=== PATIENT | male | born 1975 | race African-American/Black ===

== ENCOUNTER 2025-07-22 10:51 | Outpatient (REF) | payer MEDICAID, SELFPAY ==
--- OUTSIDE RECORDS SUMMARY | 2025-07-22 09:45 | XMS_ITS | Encounter Summary ---
Author Organization [employer] Address [address] [facility] [address] [place] [address] Care Team Providers Care Abrasive Sawyer Name Role Phone Sharona Kaur MD Primary Care Provider [phone] Reason for Referral * Consultation (Routine) - Pending Review Specialty Diagnoses / Procedures Referred By Ariel hummel Referred To Contact Podiatry Diagnoses Bunion, right foot Bunion, left Sharona Kaur MD [address] [place], [place] Phone: tel: fax: Referral ID Status Reason Start Date Expiration Date Visits Requested Visits Authorized [id number] Pending Review Specialty Services Required 07/22/2026 1 1 * Consultation (Routine) - Closed Specialty Diagnoses / Procedures Referred By Ariel hummel Referred To Contact Optometry Diagnoses Blurry vision Sharona Kaur MD [address] [place] [address] Phone: tel: fax: Referral ID Status Reason Start Date Expiration Date V isits Requested Visits Authorized [id number] Closed Specialty Services Required 07/22/2025 07/22/2026 1 1 Reason for Visit * Reason Comments new pt Encounter Details Date Type Department Care Team (Late st Contact Info) Description 07/22/2025 9:45 AM EDT Office Visit [facility] [address] [place] [address] [place] [address] Sharona Kaur MD [address] [place] [address] Blurry vision (Primary Dx); Bunion, right foot; Bunion, left; Encounter to establish care with new doctor Social History Tobacco Use Types Packs/Day Years Used Date Smoking Tobacco: Former Cigarettes Passive Smoke Exposure: Never Smokeless Tobacco: Former Alcohol Use Standard Drinks/Week Comments Defer 0 (1 standard drink = 0.6 oz pur e alcohol) Depression Answer Date Recorded Patient Health Questionnaire-9 Score 20 07/22/2025 Patient Health Questionnaire-9 Score 20 07/22/2025 Last PHQ-9: Questionnaire Data Not on file 1 Depression Answer Date Recorded Patient Health Questionnaire-2 Score 5 07/22/2025 Sex and Gender Information Value Date Recorded Sex Assigned at Male 12/25/2024 9:05 AM EDT Legal Sex Male 9:04 AM EDT Gender Identity Male 12/25/2024 9:05 AM EDT Sexual Orientation Straight 12/25/2024 9: 05 AM EDT documented as of this encounter Last Filed Vital Signs Vital Sign Reading Time Taken Comments Blood Pressure 128/70 07/22/2025 9:46 AM EDT Pulse 72 07/22/2025 9:46 AM EDT Temperature 36.6 C (97.8 F) 07/22/2025 9:46 AM EDT Respiratory Rate 20 07/22/2025 9:46 AM EDT Oxygen Saturation - - Inhaled Oxygen Concentration - - Weight 77.4 kg (170 lb 9.6 oz) 07/22/2025 9:46 A M EDT Height 185.4 cm (6' 1 ) 07/22/2025 9:46 AM EDT Body Mass Index 22.51 07/22/2025 9:46 AM EDT documented in this encounter Functional Status * Over the past 2 weeks, how often have you been bothered by any of the following problems? Question Answer Date of Assessment Author Patient Health Questionnaire -2 Score 5 07/22/2025 10:13 AM EDT Vince Barkley MA * Little interest or pleasure in doing things Answer Date of Assessment Author More than half the days 07/22/2025 10:13 AM Vince Tyson MA * Feeling down, depressed, or hopeless Answer Date of Assessment Author Nearly every day 07/22/2025 10:13 AM Vince Tyson MA * Trouble falling or staying asleep, or sleeping too much Answer Date of Assessment Author Nearly every day 07/22/2025 10:13 AM Vince Tyson MA * Feeling tired or having little energy Answer Date of Assessment Author Nearly every day 07/22/2025 10:13 AM Vince Tyson MA * Poor appetite or overeating Answer Date of Assessment Author Several days 07/22/2025 10:13 AM Vince Tyson MA * Feeling bad about yourself - or that you are a failure or have let yourself or your family down Answer Date of Assessment Author More than half the days 07/22/2025 10:13 AM Vince Tyson MA * Trouble concentrating on things, such as reading the newspaper or watching television Answer Date of Assessment Author Nearly every day 07/22/2025 10:13 AM Vince Tyson MA * Moving or speaking so slowly that other people could have noticed? Or the opposite - being so fidgety or restless that you have been moving around a lot more than usual. Answer Date of Assessment Author Nearly every day 07/22/2025 10:13 AM Vince Tyson MA * Thoughts that you would be better off or hurting yourself in some way Answer Date of Assessment Author Not at all 07/22/2025 10:13 AM Vince Tyson MA * Patient Health Questionnaire-9 Score Answer Date of Assessment Author 20 07/22/2025 10:13 AM Vince Tyson MA * How difficult have these problems made it for you to do your work, take care of things at home, or get along with other people? Answer Date of Assessment Author Very difficult 07/22/2025 10:13 AM Vince Tyson MA * Over the last 2 weeks, how often have you been bothered by any of the following problems? Question Answer Date of Assessment Author Feeling nervous, anxious, or on edge 3 07/22/2025 10:11 AM EDT Vince Barkley MA Not being able to stop or co ntrol worrying 3 07/22/2025 10:11 AM EDT Vince Barkley MA Worrying too much about diff erent things 3 07/22/2025 10:11 AM EDT Vince Barkley MA Trouble relaxing 3 07/22/2025 10:11 AM EDT Vince Barkley MA Being so restless that it is hard to sit still 3 07/22/2025 10:11 AM EDT Vince Barkley MA Becoming easily annoyed or irritable 3 07/22/2025 10:11 AM EDT Vince Barkley MA Feeling afraid as if somethi ng awful might happen 3 07/22/2025 10:11 AM EDT Vince Barkley MA FRANK-7 Total Score 21 07/22/2025 10:11 AM EDT Vince Barkley MA documented as of this encounter Plan of Treatment Scheduled Orders Name Type Priority Associated Diagnoses Orde r Schedule Hemoglobin A1c Lab Routine Encounter to establish care with new doctor Expected: 07/22/2025 (Approximate), Expires: 07/22/2026 Lipid Panel, Standard Lab Routine Encounter to establish care with new doctor Expected: 07/22/2025 (Approximate), Expires: 07/22/2026 Comprehensive Metabolic Panel Lab Routine Encounter to establish care with new doctor Expected: 07/22/2025 (Approximate), Expires: 07/22/2026 PSA,Total Lab Routine Encounter to establish care with new doctor Expected: 07/22/2025, Expires: 07/22/2026 Hepatitis C Antibody with Reflex to HCV, RNA, Quantitative, Real-Time PCR Lab Routine Encounter to establish care with new doctor Expected: 07/22/2025, Expires: 07/22/2026 HIV-1/2 Antigen and Antibodies, Fourth Generation, with Reflexes Lab Routine Encounter to establish care with new doctor Expected: 07/22/2025 (Approximate), Expires: 07/22/2026 Scheduled Referrals Name Type Priority Associated Diagnoses Orde r Schedule Referral to Optometry Outpatient Referral Routine Blurry vision Expected: 07/22/2025 (Approximate), Expires: 07/22/2026 Referral to Podiatry Outpatient Referral Routine Bunion, right foot Bunion, left Expected: 07/22/2025 (Approximate), Expires: 07/22/2026 documented as of this encounter Visit Diagnoses Diagnosis Blurry vision- Primary Other specified visual disturbances Bunion, right foot Bunion Bunion, left Encounter to establish care with new doctor documented in this encounter Additional Health Concerns Assessment Noted Time PHQ-9 Depression Total Score: 20 025 10:13 AM EDT documented as of this encounter Care Teams Abrasive Sawyer Relationship Specialty Start Date End Date Sharona Kaur MD [address] [place] [address] PCP - General Family Medicine 07/22/25 documented as of this encounter
--- OUTSIDE RECORDS SUMMARY | 2025-07-22 13:18 | XMS_ITS | Clinical Summary ---
Author Organization [employer] Address [address] [facility] [address] [place] [address] Care Team Providers Care Finance Admin Name Role Phone Sharona Kaur MD Primary Care Provider [phone] Allergies Active Allergy Reactions Criticality Noted Date Comments Penicillins Hives 07/22/2025 Medications * This document contains information received from the source organization and may not represent a complete record from that organization. ibuprofen 800 MG tablet Take 800 mg by mouth if needed in the morning, at noon, and at bedtime. 05/30/2024 Active nicotine (Nicoderm CQ) 14 MG/24HR patch Place 1 patch on the skin 1 (one) time each day at the same time. 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 Date Type Department Care Team Description 07/22/2025 9:45 AM EDT Office Visit [facility] [address] [place] [address] Sharona Kaur MD Blurry vision (Primary Dx); Bunion, right foot; Bunion, left; Encounter to establish care with new doctor 07/22/2025 Travel 07/21/2025 Telephone [facility] [address] [place] [address] Sharona Kaur MD Chart Prep 07/15/2025 Patient Outreach [facility] [address] [place] [address] Sharona Kaur MD Pre-visit Planning (SDOH unable to reach [facility] ) 06/09/2025 8:00 AM EDT Office Visit [facility] [address] [place] [address] Bernard Mcdaniel DDS Dental caries (Primary Dx) 04/22/2025 9:00 AM EDT Office Visit [facility] [address] [place] [address] Bernard Mcdaniel DDS Edentulous maxilla (Primary Dx); Partial edentulism, unspecified edentulism class from Last 3 Months Immunizations Immunization Administration Dates Next Due Zoster, Recombinant 01/21/2025 Social History Tobacco Use Types Packs/Day Years Used Date Smoking Tobacco: Former Cigarettes Passive Smoke Exposure: Never Smokeless Tobacco: Former Tobacco Cessation:Counseling Given: No Alcohol Use Standard Drinks/Week Comments Defer 0 [...] Orientation Straight 12/25/2024 9: 05 AM EDT Last Filed Vital Signs Vital Sign Reading Time Taken Comments Blood Pressure 128/70 07/22/2025 9:46 AM EDT Pulse 72 07/22/2025 9:46 AM EDT Temperature 36.6 C (97.8 F) 07/22/2025 9:46 AM EDT Respiratory Rate 20 07/22/2025 9:46 AM EDT Oxygen Saturation 99% 03/08/2025 10:49 AM EDT Inhaled Oxygen Concentration - - Weight 77.4 kg (170 lb 9.6 oz) 07/22/2025 9:46 A M EDT Height 185.4 cm (6' 1 ) 07/22/2025 9:46 AM EDT Body Mass Index 22.51 07/22/2025 9:46 AM EDT Plan of Treatment Health Maintenance Due Date Last Done Comments CT Colonography 1974 Colonoscopy 1974 Colorectal Cancer Screening 1974 FIT DNA/Cologuard 1974 FIT 1974 FOBT 1974 HIV Screening 1974 Lipid Panel 1974 SDOH Screening 1974 Sigmoidoscopy 1974 Disability Screening 1974 Family Planning (PISQ) 1989 Hepatitis C Screening 1992 DTaP/Tdap/Td Vaccines (1 - Tdap) 1993 Hepatitis B Vaccines (1 of 3 - 19+ 3-dose series) 1993 Pneumococcal Vaccine: 50+ Years (1 of 1 - PCV) 2024 Zoster Vaccines (2 of 2) 03/18/2025 01/21/2025 COVID-19 Vaccine ( - 2023-2 5 season) 2025 Influenza Vaccine (#1) 2025 Dental Oral Exam 07/09/2025 01/06/2025 Dental Prophylaxis 07/09/2025 01/06/2025 Dental X-Ray: Bitewings 01/07/2026 01/06/2025 Depression Monitoring 01/20/2026 07/22/2025 , 07/22/2025 Tobacco Screening 06/09/2026 06/09/2025 Alcohol/Substance Use Screening 07/22/2026 07/22/2025 Dental X-Ray: Full Mouth 01/08/2028 01/06/2025 RSV Patients and Patients Aged 60 years or older (1 - 1-dose 75+ series) 2049 HIB Vaccines Aged Out No longer eligi ble based on patient's age to complete this topic HPV Vaccines Aged Out No longer eligi ble based on patient's age to complete this topic Hepatitis A Vaccines Aged Out No long er eligible based on patient's age to complete this topic IPV Vaccines Aged Out No longer eligi ble based on patient's age to complete this topic Meningococcal B Vaccine Aged Out No l onger eligible based on patient's age to complete this topic Meningococcal Vaccine Aged Out No alena daphne eligible based on patient's age to complete this topic RSV under 20 months Aged Out No longe r eligible based on patient's age to complete this topic Rotavirus Vaccines Aged Out No longer eligible based on patient's age to complete this topic Procedures Procedure Name Priority Date/Time Associated Diagnosis Comments ADJUST PARTIAL DENTURE - MANDIBULAR Routine 06/09/2025 8:00 AM EDT CASE PRESENTATION, DETAILED AND EXTENSIVE TREATMENT PLANNING Routine 06/09/2025 8:00 AM EDT 27 MDF(V) RESIN-BASED COMPOSITE - 3 SURF, ANTERIOR Routine 06/09/2025 8:00 AM EDT 21 B(V) RESIN-BASED COMPOSITE - 1 SURF, POSTERIOR Routine 06/09/2025 8:00 AM EDT CASE PRESENTATION, DETAILED AND EXTENSIVE TREATMENT PLANNING Routine 04/22/2025 9:00 AM EDT 17,18,19,20,28,29,30,31 MANDIBULAR PARTIAL DENTURE - RESIN BASE (INCLUDING, RETENTIVE/CLASPING MATERIALS, RESTS, AND TEETH) Routine 04/22/2025 9:00 AM EDT Max COMPLETE DENTURE - MAXILLARY Routine 04/22/2025 9:00 AM EDT PROPHYLAXIS - ADULT Routine 01/06/2025 1 1:00 AM EDT Dental calculus Gingival bleeding INTRAORAL - COMPLETE SERIES OF RADIOGRAPHIC IMAGES Routine 01/06/2025 8:00 AM EDT COMPREHENSIVE ORAL EVALUATION - NEW OR ESTABLISHED PATIENT Routine 01/06/2025 8:00 AM EDT from Last 3 Months or Most Recently Relevant to Health Maintenance Insurance [facility] ADULT Care Teams Finance Admin Relationship Specialty Start Date End Date Sharona Kaur MD [address] [place] [id number] PCP - General Family Medicine 07/22/25
--- OUTSIDE RECORDS SUMMARY | 2025-07-22 13:18 | XMS_ITS | Encounter Summary ---
Author Organization [employer] Address [address] [facility] [address] [place] [address] Care Team Providers Care Conductor Freight Name Role Phone Sharona Kaur MD Primary Care Provider [phone] Encounter Details Date Type Department Care Team (Latest Contact Info) Description 07/22/2025 Travel Social History Tobacco Use Types Packs/Day Years [...] AM EDT documented as of this encounter Functional Status * Over the past 2 weeks, how often have you been bothered by any of the following problems? Question Answer Date of Assessment Author Patient Health Questionnaire -2 Score 5 07/22/2025 10:13 AM EDT Vince Barkley MA * Little interest or pleasure in doing things Answer Date of Assessment Author More than half the days 07/22/2025 10:13 AM EDT Vince Barkley MA * Feeling down, depressed, or hopeless [...] or on edge 3 07/22/2025 10:11 AM Vince Tyson MA Not being able to stop or [...] as of this encounter Plan of Treatment Not on file documented as of this encounter Visit Diagnoses Not on filedocumented in this encounter Additional Health Concerns Assessment Noted Time PHQ-9 Depression Total Score: 20 025 10:13 AM EDT documented as of this encounter Care Teams Conductor Freight Relationship Specialty Start Date End Date Sharona Kaur MD [address] [place] [address] PCP - General Family Medicine 07/22/25 documented as of this encounter
--- OUTSIDE RECORDS SUMMARY | 2025-07-22 13:19 | XMS_ITS | Encounter Summary ---
Author Organization [employer] Address [address] [facility] [address] [place] [address] Care Team Providers Care Jointer Submarine Cable Name Role Phone Unavailable Primary Care Provider Unavailabl e Reason for Visit * Reason Onset Date Comments Chart Prep 07/21/2025 Encounter Details Date Type Department Care Team ([facility] st Contact Info) Description 07/21/2025 Telephone [facility] [address] [place] [address] Sharona Kaur MD [address] [place] [address] Chart Prep Social History Tobacco Use Types Packs/Day Years [...] AM EDT documented as of this encounter Miscellaneous Notes * Telephone Encounter - Irasema Woodard MA - 07/21/2025 2:15 PM EDT Chart Prep Labs: not applicable Images: not applicable Referrals: not applicable Vaccines due: Covid, Flu, PCV20, Tdap, Hep B, and Zoster Screenings: colonoscopy and PISQ, HIV Screening, Hepatitis C Screening Overdue care gaps: SBIRT, SDOH, PHQ-9, FRANK-7, Oral health screening, and Disability screen documented in this encounter Plan of Treatment Not on file documented as of this encounter Visit Diagnoses Not on filedocumented in this encounter
[2025-07-22 14:41] LABS: Prostate Specific Antigen 1.03 ng/mL (<0.05-4.0)
[2025-07-22 14:45] LABS: Hemoglobin A1C 131.5300 umol/L
[2025-07-22 18:15] LABS: Alanine Aminotransferase 27 U/L (0-40); Albumin Level 4.5 g/dL (3.5-5.0); Alkaline Phosphatase 70 U/L (39-117); Anion Gap 8 (12-20); Aspartate Amino Transferase 35 U/L (5-37); Blood Urea Nitrogen 13 mg/dL (9-16); Calcium 9.2 mg/dL (8.4-10.2); Carbon Dioxide 26 mmol/L (22-29); Chloride 109 mmol/L (96-108); Cholesterol 171 mg/dL (<200); Estimated Glomerular Filt Rate > 60; HDL Cholesterol 47 mg/dL (>40); Potassium 4.2 mmol/L (3.3-5.1); Sodium 139 mmol/L (135-145); Total Protein 7.8 g/dL (6.5-8.0); Triglycerides 65 mg/dL (<150)
[2025-07-23 03:32] LABS: HIV Num 1 0.06 S/CO (0.00-0.99); ~HepC Num1 0.09 S/CO (0.00-0.79); ~Hepatitis C Antibody Nonreactive (Nonreactive)
== END 2025-07-22 10:52 | disposition home or self-care (01) ==
LOC: HO.HHCL 10:51
PROVIDERS: PCP General Practice; Visit Provider General Practice
DX: Z76.89 Persons encountering health services in other specified circumstances (principal); Z11.59 Encounter for screening for other viral diseases; Z11.4 Encounter for screening for human immunodeficiency virus [HIV]
CPT/HCPCS: 36415; 80053; 80061; 83036; 84153; 86803; 87389

== ENCOUNTER 2025-08-01 09:33 | Outpatient (REF) | payer MEDICAID, SELFPAY ==
--- NOTE | ~2025-08-01 | XR_ITS ---
EXAMINATION: XR HIP 2 OR MORE VIEWS RIGHT HISTORY: right hip groin pain COMPARISON: There are no prior studies available for comparison. FINDINGS: Two views of the right hip are submitted. Osseous mineralization is normal. There is no fracture or dislocation. There is mild joint space narrowing. The soft tissues are unremarkable. XR/XR hip RT min 2V IMPRESSION: Mild joint space narrowing Electronically signed by: Ottoniel Sanchez MD 08/01/2025 10:09 AM EDT
--- OUTSIDE RECORDS SUMMARY | 2025-08-01 09:20 | XMS_ITS | Encounter Summary ---
Author Organization [employer] Address [address] [facility] [address] [place] [address] Care Team Providers Care Fisheries Technical Officer Name Role Phone Sharona Kaur MD Primary Care Provider [phone] Reason for Referral * Imaging (Routine) - Authorized Specialty Diagnoses / Procedures Referred By Contac t Referred To Contact Radiology Diagnoses Right hip pain Procedures US Groin soft tissue Bia Garner NP [address] [place] [address] Phone: tel: fax: [address] Phone: tel: fax: Referral ID Status Reason Start Date Expiration Date V isits Requested Visits Authorized [id number] Authorized 08/01/2025 08/01/2026 1 1 Reason for Visit * Reason Comments Back Pain Encounter Details Date Type Department Care Team (Late st Contact Info) Description 08/01/2025 9:20 AM EDT Office Visit [facility] [address] [place], [place] [id number] Bia Garner NP [address] [place] [address] Right hip pain (Primary Dx) Social History Tobacco Use Types Packs/Day Years Used Date Smoking Tobacco: Former Cigarettes Passive Smoke Exposure: Never Smokeless Tobacco: Former Tobacco Cessation:Counseling Given: Not Answered Alcohol Use Standard Drinks/Week Comments Defer 0 [...] Sign Reading Time Taken Comments Blood Pressure 125/80 08/01/2025 8:53 AM EDT Pulse 90 08/01/2025 8:53 AM EDT Temperature 37.1 C (98.7 F) 08/01/2025 8:53 AM EDT Respiratory Rate 18 08/01/2025 8:53 AM EDT Oxygen Saturation - - Inhaled Oxygen Concentration - - Weight 81.4 kg (179 lb 6.4 oz) 08/01/2025 8:53 A M EDT Height 185.4 cm (6' 1 ) 08/01/2025 8:53 AM EDT Body Mass Index 23.67 08/01/2025 8:53 AM EDT documented in this encounter Progress Notes * Bia Garner NP - 08/01/2025 9:20 AM EDT Pedrito Cooley is a 50 y.o. male who presents to the office for Chief Complaint Patient presents with Back Pain Problem List[1] Medical History[2] Allergies[3] Pedrito Cooley, 50-year-old male - Groin pain described as pinching or shocking sensation in the front thigh, onset close to a year ago, worsened acutely this morning - Pain occurs with walking and standing, sometimes causes leg to give out from the knee and whole leg - Denies feeling any lump or bulge in the groin - Pain recently radiating from the inside of the hip - No history of back injuries except for one incident in the past, evaluated at hospital and told everything was fine - No current use of pain medications - History of foot pain and bunion, treated in November 2024, with ongoing issues and upcoming foot doctor appointment - Reports limping due to foot pain, unable to put much pressure on feet Review of Systems Respiratory: Negative for apnea and chest tightness. Musculoskeletal: Positive for gait problem and myalgias. Negative for joint swelling and neck pain. BP 125/80 (BP Location: Left arm, Patient Position: Sitting, BP Cuff Size: Adult) Pulse 90 Temp98.7 ??F (37.1 ??C) (Temporal) Resp 18 Ht 6' 1 (1.854 m) Wt 179 lb 6.4 oz (81.4 kg) BMI 23.67 kg/m?? Physical Exam Vitals reviewed. Constitutional: Appearance: Normal appearance. HENT: Head: Normocephalic and atraumatic. Nose: Nose normal. Cardiovascular: Rate and Rhythm: Normal rate. Heart sounds: Normal heart sounds. Pulmonary: Breath sounds: Normal breath sounds. Abdominal: Palpations: Abdomen is soft. Musculoskeletal: General: No tenderness. Cervical back: Neck supple. Right hip: No deformity. Normal range of motion. Left hip: No deformity. Normal range of motion. Right lower leg: No edema. Left lower leg: No edema. Right foot: Decreased range of motion. Deformity and bunion present. Left foot: Decreased range of motion. Deformity and bunion present. Neurological: Mental Status: He is alert. Psychiatric: Mood and Affect: Mood normal. - MUSCULOSKELETAL: Examination of the groin and front thigh revealed no hernia or mass. Tenderness in the groin upon palpation. Pain during leg movement and weight-bearing. Nontender upon palpation in other areas of the leg. Assessment & Plan Right hip pain Orders: XR Hip 2 or 3 Views Right; Future US Groin soft tissue; Future acetaminophen (Tylenol Extra Strength) 500 MG tablet; Take 2 tablets (1,000 mg) by mouth every 8 (eight) hours if needed for mild pain for up to 10 days. ibuprofen 800 MG tablet; Take 1 tablet (800 mg) by mouth if needed in the morning, at noon, and at bedtime for moderate pain (with food) for up to 10 days. Assessment & Plan Right hip pain: - Right hip pain may be due to hip arthritis, muscle involvement, or possible indirect inguinal hernia. Differential diagnosis includes hip arthritis and hernia. - Ordered right hip X-ray. Ordered groin soft tissue ultrasound to evaluate for hernia. Prescribed Tylenol and ibuprofen for pain control. Advised to stay off the affected leg, avoid heavy lifting, and walk gently. Scheduled follow-up in one month to reassess symptoms and review test results. Prescription - Acetaminophen, 2 tablets three times daily for pain control (non-addictive) - Ibuprofen, 1 tablet three times daily with food for pain control Appointments - Ultrasound of groin at [facility] next week - Follow-up consultation in one month Current Medications[4] Based on our discussion, I have outlined the following instructions for you: - Take Tylenol and ibuprofen to help with your pain, following the instructions on the package. - Try not to put weight on your sore leg, and if you need to walk, do so slowly and carefully. - Avoid lifting heavy things. Next appointment(s): - Ultrasound of groin at [facility] next week - Follow-up consultation in one month Thank you again for your visit, and we look forward to supporting you in your journey to better health. This note was drafted using Ambient (AI) technology. The patient/patient's guardian has been informed and has consented to the use of this technology: Yes [1] Patient Active Problem List Diagnosis Retained dental root Partial edentulism Edentulous maxilla Dental calculus Gingival bleeding Periodontal disease Dental caries Severe depression (CMS/HCC) (HCC) Blurry vision Bunion, left Bunion, right foot Colon cancer screening Encounter to establish care with new doctor Right hip pain [2] Past Medical History: Diagnosis Date Known health problems: none [3] Allergies Allergen Reactions Penicillins Hives [4] Current Outpatient Medications: acetaminophen (Tylenol Extra Strength) 500 MG tablet, Take 2 tablets (1,000 mg) by mouth every 8 (eight) hours if needed for mild pain for up to 10 days., Disp: 30 tablet, Rfl: 0 ibuprofen 800 MG tablet, Take 1 tablet (800 mg) by mouth if needed in the morning, at noon, and at bedtime for moderate pain (with food) for up to 10 days., Disp: 30 tablet, Rfl: 0 nicotine (Nicoderm CQ) 14 MG/24HR patch, Place 1 patch on the skin 1 (one) time each day at the same time., Disp: 30 patch, Rfl: 3 documented in this encounter Miscellaneous Notes * Assessment & Plan Note - Bia Garner NP - 08/01/2025 9:20 AM EDTAssociated Problem(s): Right hip pain Orders: XR Hip 2 or 3 Views Right; Future US Groin soft tissue; Future acetaminophen (Tylenol Extra Strength) 500 MG tablet; Take 2 tablets (1,000 mg) by mouth every 8 (eight) hours if needed for mild pain for up to 10 days. ibuprofen 800 MG tablet; Take 1 tablet (800 mg) by mouth if needed in the morning, at noon, and at bedtime for moderate pain (with food) for up to 10 days. documented in this encounter Plan of Treatment Upcoming Encounters Date Type Department Care Team (Late st Contact Info) Description 11/28/2025 11:00 AM EST Office Visit [facility] [address] [place] [address] Dinora Liu, OD [address] [place] [address] Scheduled Orders Name Type Priority Associated Diagnoses Orde r Schedule US Groin soft tissue Imaging Routine Right hip pain Expected: 08/01/2025, Expires: 08/01/2026 documented as of this encounter Procedures Procedure Name Priority Date/Time Associated Diagnosis Comments XR HIP 2 OR 3 VIEWS RIGHT Routine 08/01/2025 9:50 AM EDT Right hip pain documented in this encounter Results * XR Hip 2 or 3 Views Right (08/01/2025 9:50 AM EDT) Anatomical Region Laterality Modality Lower Extremities, Hip Right Radiograp hic Imaging 08/01/2025 9:50 AM EDT Narrative 08/01/2025 10:11 AM EDT [address] [address] XRay Report Signed Patient: Pedrito Cooley MR#: [id number] 6 : 1975 Acct:[id number] Age/Sex: 50 / M ADM Date: 08/01/25 Loc: [facility] Attending Dr: Bia Garner LEHR TENDER Ordering Physician: Bia Garner LEHR TENDER Date of Service: 08/01/25 Procedure(s): XR hip RT min 2V Accession Number(s): [id number] cc: Bia Garner LEHR TENDER Reason for Exam: right hip groin pain EXAMINATION: XR HIP 2 OR MORE VIEWS RIGHT HISTORY: right hip groin pain COMPARISON: There are no prior studies available for comparison. FINDINGS: Two views of the right hip are submitted. Osseous mineralization is normal. There is no fracture or dislocation. There is mild joint space narrowing. The soft tissues are unremarkable. XR/XR hip RT min 2V IMPRESSION: Mild joint space narrowing Electronically signed by: Ottoniel Sanchez MD 08/01/2025 10:09 AM EDT Dictated By: Ottoniel Sanchez MD Signed By: <Electronically signed by Ottoniel Sanchez MD in OV> 08/01/25 1009 DD/ 9 TD/TT: 08/01/25950 Lion Tamer: Procedure Note Donotuseinterpreter, Image - 08/01/[address] [address] XRay Report Signed Patient: Pedrito CooleyMR#: [id number] 6 : 1975Acct:[id number] Age/Sex: 50 / MADM Date: 08/01/25 Loc: CX Attending Dr: Bia Garner LEHR TENDER Ordering Physician: Bia Garner LEHR TENDER Date of Service: 08/01/25 Procedure(s): XR hip RT min 2V Accession Number(s): [id number] cc: Bia Garner LEHR TENDER Reason for Exam: right hip groin pain EXAMINATION: XR HIP 2 OR MORE VIEWS RIGHT HISTORY: right hip groin pain COMPARISON: There are no prior studies available for comparison. FINDINGS: Two views of the right hip are submitted. Osseous mineralization is normal. There is no fracture or dislocation. There is mild joint space narrowing. The soft tissues are unremarkable. XR/XR hip RT min 2V IMPRESSION: Mild joint space narrowing Electronically signed by: Ottoniel Sanchez MD 08/01/2025 10:09 AM EDT RP Dictated By: Ottoniel Sanchez MD Signed By: <Electronically signed by Ottoniel Sanchez MD in OV> 08/01/25 1009 DD/ TD/TT: 08/01/25 0951 Lion Tamer: Bia Garner LEHR TENDER IMG XR PROCEDURES Final Result documented in this encounter Visit Diagnoses Diagnosis Right hip pain- Primary Pain in joint, pelvic region and thigh documented in this encounter Additional Health Concerns Assessment Noted Time PHQ-9 Depression Total Score: 20 025 10:13 AM EDT documented as of this encounter Care Teams Fisheries Technical Officer Relationship Specialty Start Date End Date Sharona Kaur MD [address] [place] [address] PCP - General Family Medicine 07/22/25 documented as of this encounter
--- OUTSIDE RECORDS SUMMARY | 2025-08-01 10:40 | XMS_ITS | Encounter Summary ---
Author Organization [employer] Address [address] [facility] [address] [place] [address] Care Team Providers Care Chief Lock Operator Name Role Phone Sharona Kaur MD Primary Care Provider [phone] Encounter Details Date Type Department Care Team (Latest Contact Info) Description 08/01/2025 Travel Social History Tobacco Use Types Packs/Day [...] AM EDT documented as of this encounter Plan of Treatment Upcoming Encounters Date Type Department Care Team (Late st Contact Info) Description 11/28/2025 11:00 AM EST Office Visit [facility] [address] [place] [address] Dinora Liu, OD [address] [place] [address] documented as of this encounter Visit Diagnoses Not on filedocumented in this encounter Additional Health Concerns Assessment Noted Time PHQ-9 Depression Total Score: 20 025 10:13 AM EDT documented as of this encounter Care Teams Chief Lock Operator Relationship Specialty Start Date End Date Sharona Kaur MD [address] [place] [address] PCP - General Family Medicine 07/22/25 documented as of this encounter
--- OUTSIDE RECORDS SUMMARY | 2025-08-01 10:40 | XMS_ITS | Encounter Summary ---
Author Organization [employer] Address [address] [facility] [address] [place] [address] Care Team Providers Care Credentialing Manager Name Role Phone Sharona Kaur MD Primary Care Provider [phone] Reason for Visit * Reason Onset Date Comments Results 07/28/2025 Encounter Details Date Type Department Care Team (Latest Contact Info) Description 07/28/2025 Results Follow-Up [facility] [address] [place] [address] Sharona Kaur MD [address] [place] [address] Hemoglobin A1c, Lipid Panel, Standard, Comprehensive Metabolic Panel, Additional followed-up results: 3 Social History Tobacco Use Types Packs/Day Years [...] encounter Miscellaneous Notes * Telephone Encounter - Ivette Hong RN - 07/28/2025 11:28 AM EDT TC placed to patient [phone] to inform of below message. Patient verbalized understanding and did not have any further questions/concerns. Patient reports he will inform his to adjust her cooking habits as well. Patient to f/u PRN. ----- Message from Sharona Kaur MD sent at 07/28/2025 10:03 AM EDT ----- Please let patient know that his lab work is normal, except for slight high LDL cholesterol. He canwork some on his diet, eating lower saturated fat foods, but mostly very positive lab results. ----- Message ----- From: Interface, Lab Results In Sent: 07/22/2025 2:41 PM EDT To: Sharona Kaur MD * Result Encounter Note - Sharona Kaur MD - 07/28/2025 10:03 AM EDT Please let patient know that his lab work is normal, except for slight high LDL cholesterol. He canwork some on his diet, eating lower saturated fat foods, but mostly very positive lab results. documented in this encounter Plan of Treatment Upcoming Encounters Date Type Department Care Team (Late st Contact Info) Description 11/28/2025 11:00 AM EST Office Visit [facility] [address] [place] [address] Dinora Liu, OD [address] [place] [address] documented as of this encounter Visit Diagnoses Not on filedocumented in this encounter Additional Health Concerns Assessment Noted Time PHQ-9 Depression Total Score: 20 025 10:13 AM EDT documented as of this encounter Care Teams Credentialing Manager Relationship Specialty Start Date End Date Sharona Kaur MD [address] [place] [address] PCP - General Family Medicine 07/22/25 documented as of this encounter
--- OUTSIDE RECORDS SUMMARY | 2025-08-01 10:40 | XMS_ITS | Clinical Summary ---
Author Organization [employer] Address [address] [place] [address] Care Team Providers Care Rod Mill Tender Name Role Phone Sharona Kaur MD Primary Care Provider [phone] Allergies Active Allergy Reactions Criticality Noted Date Comments Penicillins Hives 07/22/2025 Medications * This document contains information received from the source organization and may not represent a complete record from that organization. nicotine (Nicoderm CQ) 14 MG/24HR patch Place 1 patch on the skin 1 (one) time each day at the same time. 30 patch 3 07/22/20 25 025 Active acetaminophen (Tylenol Extra Strength) 500 MG tabletIndicati ons:Right hip pain Take 2 tablets (1,000 mg) by mouth every 8 (eight) hours if needed for mild pain for up to 10 days. 30 tablet 08/01/20 25 025 Active ibuprofen 800 MG tabletIndicati ons:Right hip pain Take 1 tablet (800 mg) by mouth if needed in the morning, at noon, and at bedtime for moderate pain (with food) for up to 10 days. 30 tablet 08/01/20 25 025 Active ibuprofen 800 MG tablet Take 800 mg by mouth if needed in the morning, at noon, and at bedtime. 05/30/20 24 025 Discontinued(Re order (will not trigger notification to Pharmacy)) Active Problems Problem Noted Date Diagnosed Date Right hip pain 08/01/2025 Assessment & Plan (08/01/2025 10:35 AM EDT): Orders: XR Hip 2 or 3 Views [...] (with food) for up to 10 days. Severe depression (CMS/HCC) 07/22/2025 Blurry vision 07/22/2025 Bunion, left 07/22/2025 Bunion, right foot 07/22/2025 Colon cancer screening 07/22/2025 Encounter to establish care with new doctor 07/03 Dental caries 06/09/2025 Retained dental root 01/06/2025 Partial edentulism 01/06/2025 Edentulous maxilla 01/06/2025 Dental calculus 01/06/2025 Gingival bleeding 01/06/2025 Periodontal disease 01/06/2025 Encounters * This document contains information received from the source organization and may not represent a complete record from that organization. Date Type Department Care Team Description 08/01/2025 9:20 AM EDT Office Visit [facility] [address] [place] [phone] Bia Garner NP Right hip pain (Primary Dx) 08/01/2025 Travel 07/28/2025 Results Follow-Up [address] [address] Sharona Kaur MD Hemoglobin A1c, Lipid Panel, Standard, Comprehensive Metabolic Panel, Additional followed-up results: 3 07/22/2025 9:45 AM EDT Office Visit [address] [address] Sharona Kaur MD Encounter to establish care with new doctor (Primary Dx); Blurry vision; Bunion, right foot; Bunion, left; Colon cancer screening; Housing instability; Severe depression (CMS/HCC) (HCC) 07/22/2025 Travel 07/21/[address] [address] Sharona Kaur MD Chart Prep 07/15/2025 Patient Outreach [facility] [address] [place] [address] Sharona Kaur MD Pre-visit Planning ([facility] unable to reach [facility] ) 06/09/2025 8:00 AM EDT Office Visit [facility] [address] [place] [address] Bernard Mcdaniel DDS Dental caries (Primary Dx) from Last 3 Months Immunizations Immunization Administration [...] 18 08/01/2025 8:53 AM EDT Oxygen Saturation 99% 03/08/2025 10:49 AM EDT Inhaled Oxygen Concentration - - Weight 81.4 kg (179 lb 6.4 oz) 08/01/2025 8:53 A M EDT Height 185.4 cm (6' 1 ) 08/01/2025 8:53 AM EDT Body Mass Index 23.67 08/01/2025 8:53 AM EDT Plan of Treatment Upcoming Encounters Date Type Department Care Team (Late st Contact Info) Description 11/28/2025 11:00 AM EST Office Visit [facility] [address] [place] [address] Dinora Liu, OD [address] [place] [address] Health Maintenance Due Date Last Done Comments CT Colonography 1974 Colonoscopy 1974 Colorectal Cancer Screening 1974 FIT DNA/Cologuard 1974 FIT 1974 FOBT 1974 SDOH Screening 1974 Sigmoidoscopy 1974 Disability Screening 1974 Family Planning (PISQ) 1989 DTaP/Tdap/Td Vaccines (1 - Tdap) 1993 Hepatitis B Vaccines (1 of 3 - 19+ 3-dose series) 1993 Pneumococcal Vaccine: 50+ Years (1 of 1 - PCV) 2024 Zoster Vaccines (2 of 2) 03/18/2025 01/21/2025 COVID-19 Vaccine (1 - 2023-2 5 season) 2025 Influenza Vaccine (#1) 2025 Dental Oral Exam 07/09/2025 01/06/2025 Dental Prophylaxis 07/09/2025 01/06/2025 Dental X-Ray: Bitewings 01/07/2026 01/06/2025 Depression Monitoring 01/20/2026 07/22/2025 , 07/22/2025 Alcohol/Substance Use Screening 07/22/2026 07/22/2025 Tobacco Screening 08/01/2026 08/01/2025 Dental X-Ray: Full Mouth 01/08/2028 01/06/2025 Lipid Panel 07/22/2030 07/22/2025 RSV Patients and Patients Aged 60 years or older (1 - 1-dose 75+ series) 2049 HIV Screening Completed 07/22/2025 Hepatitis C Screening Completed 07/22/2025 HIB Vaccines Aged Out No longer eligi [...] 08/01/2025 9:50 AM EDT Right hip pain HIV 1/2 ANTIGEN/ANTIBODY, FOURTH GENERATION W/RFL Routine 07/22/2025 11:25 AM EDT Encounter to establish care with new doctor HEPATITIS C AB W/REFL TO HCV RNA, QN, PCR Routine 07/22/2025 11:25 AM EDT Encounter to establish care with new doctor PSA, TOTAL Routine 07/22/2025 11:25 AM EDT Encounter to establish care with new doctor COMPREHENSIVE METABOLIC PANEL Routine 07/22/2025 11:25 AM EDT Encounter to establish care with new doctor LIPID PANEL, STANDARD Routine 07/22/2025 11:25 AM EDT Encounter to establish care with new doctor HEMOGLOBIN A1C Routine 07/22/2025 11:25 AM EDT Encounter to establish care with new doctor ADJUST PARTIAL DENTURE - MANDIBULAR Routine 06/09/2025 8:00 AM EDT CASE PRESENTATION, DETAILED AND EXTENSIVE TREATMENT PLANNING Routine 06/09/2025 8:00 AM EDT 27 MDF(V) RESIN-BASED COMPOSITE - 3 SURF, ANTERIOR Routine 06/09/2025 8:00 AM EDT 21 B(V) RESIN-BASED COMPOSITE - 1 SURF, POSTERIOR Routine 06/09/2025 8:00 AM EDT PROPHYLAXIS - ADULT Routine 01/06/2025 1 1:00 AM EDT Dental calculus Gingival bleeding INTRAORAL - COMPLETE SERIES OF RADIOGRAPHIC IMAGES Routine 01/06/2025 8:00 AM EDT COMPREHENSIVE ORAL EVALUATION - NEW OR ESTABLISHED PATIENT Routine 01/06/2025 8:00 AM EDT from Last 3 Months or Most Recently Relevant to Health Maintenance Results * XR Hip 2 or 3 Views Right (08/01/2025 9:50 AM EDT) Anatomical Region Laterality Modality Lower Extremities, Hip Right Radiograp hic Imaging 08/01/2025 9:50 AM EDT Narrative 08/01/2025 10:11 AM EDT [address] [address] XRay Report Signed Patient: Pedrito Cooley MR#: [id number] 6 : 1975 Acct:[id number] Age/Sex: 50 / M ADM Date: 08/01/25 Loc: HO.HHCX Attending Dr: Bia Garner AUTO BODY BUILDER APPRENTICE Ordering Physician: Bia Garner NP Date of Service: 08/01/25 Procedure(s): XR hip RT min 2V Accession Number(s): [id number] cc: Bia Garner NP Reason for Exam: right hip groin pain [...] OV> 08/01/25 1009 DD/ 9 TD/TT: 08/01/25950 Hand Laster: Procedure Note Donotuseinterpreter, Image - 08/01/[address] [address] XRay Report Signed Patient: Pedrito CooleyMR#: [id number] 6 : 1975Acct:[id number] Age/Sex: 50 / MADM Date: 08/01/25 Loc: HO.HHCX Attending Dr: Bia Garner AUTO BODY BUILDER APPRENTICE Ordering Physician: Bia Garner NP Date of Service: 08/01/25 Procedure(s): XR hip RT min 2V Accession Number(s): [id number] cc: Bia Garner AUTO BODY BUILDER APPRENTICE Reason for Exam: right hip groin pain [...] Sanchez MD in OV> 08/01/25 1009 DD/ 0950 TD/TT: 08/01/25 0951 Hand Laster: us Bia Garner AUTO BODY BUILDER APPRENTICE IMG XR PROCEDURES Final Result * Hepatitis C Antibody with Reflex to HCV, RNA, Quantitative, Real-Time PCR (07/22/2025 11:25 AM EDT) Hepatitis C Antibody Nonreactive Nonreactive [facility] Comment:Antibodies to HCV no t detected; does not exclude early acuteHCV infection. Blood Venous blood specimen / Unknown 07/22/2025 11:25 AM EDT 07/22/2025 1:28 PM EDT us Sharona Kaur MD LAB BLOOD ORDERABLES Final Res ult [facility] [address] [place] [phone] * HIV-1/2 Antigen and Antibodies, Fourth Generation, with Reflexes (07/22/2025 11:25 AM EDT) HIV AB/AG Nonreactive Nonreactive [facility] Comment:HIV-1 p24 Ag and/or HIV-1/HIV-2 Ab not detected.A test result that is nonreactive does not exclude thepossibility of exposure to or infection with HIV-1 and/orHIV-2. Nonreactive results in this assay for individualswith prior exposure to HIV-1 and/or HIV-2 may be due toantigen and antibody levels that are below the limit ofdetection of this assay.The [employer] HIV Ag/Ab Combo assay result andsupplemental assay results should be interpreted inconjunction with the patient's clinical presentation,history and other laboratory results. If the results areinconsistent with clinical evidence, additional testing issuggested to confirm the result. Blood Venous blood specimen / Unknown 07/22/2025 11:25 AM EDT 07/22/2025 1:28 PM EDT Sharona Kaur MD LAB BLOOD ORDERABLES Final Res ult Performing Organization Address City/[facility]/ZIP Co de Phone Number [facility] [address] [place] [phone] * PSA,Total (07/22/2025 11:25 AM EDT) Prostate Specific Antigen 1.03 <0.05 - 4.0 ng/mL [facility] Comment:PSA methodology: Abb gabriela Almaguerty i ChemiluminescentMicroparticle Immunoassay (CMIA) Blood Venous blood specimen / Unknown 07/22/2025 11:25 AM EDT 07/22/2025 1:28 PM EDT Sharona Kaur MD LAB BLOOD ORDERABLES Final Res ult [facility] [address] [place] [phone] * Hemoglobin A1c (07/22/2025 11:25 AM EDT) Hemoglobin A1c 5.4 <6.0 % [facility] Comment:Hemoglobin A1C Refer ence Range Adults: 4.8 - 6.0 % Non diabetic: < 6.0 % Goal: < 7.0 %Additional Action Suggested: > 8.0 %Note: Hemoglobin A1c results are invalid for patients with abnormal amounts of HbF. Blood transfusions may impact the HbA1c concentration in the patient sample. Estimated Average Glucose 108 mg/dL [facility] Comment:eAG = Estimated ave rage glucose which is %A1C expressed asaverage glucose, using the formula of the P6F-BewidoyZbdjzuw Glucose study (ADAG), Diabetes Care, Vol.31,#8,May. 2007 Blood Venous blood specimen / Unknown 07/22/2025 11:25 AM EDT 07/22/2025 1:34 PM EDT us Sharona Kaur MD LAB BLOOD ORDERABLES Final Res ult [facility] [address] [place] [phone] * (ABNORMAL) Lipid Panel, Standard (07/22/2025 11:25 AM EDT) Triglycerides 65 <150 mg/dL [facility] Comment:Desirable Triglyceri de: less than 150 mg/dLBorderline High Triglyceride 150-199 mg/dLHigh Triglyceride: 200-499 mg/dLVery High Triglyceride: greater than or equal to 5OO mg/dL Cholesterol 171 <200 mg/dL [facility] Comment:Desirable Cholestero l: less than 200 mg/dLBorderline High Cholesterol: 200-239 mg/dLHigh Cholesterol: greater than 239 mg/dL LDL Cholesterol Calculated 111(H) <100 mg/dL [facility] Comment:Desirable LDL: less than 100 mg/dLNear Optimal/Above Optimal LDL: 110- 129 mg/dLBorderline High LDL: 130-159 mg/dLHigh LDL: 160-189 mg/dLVery High LDL: greater than or equal to 190 mg/dL HDL Cholesterol 47 >40 mg/dL [facility] Comment:Desirable HDL: great er than 40 mg/dL Note: This HDL assay may give artificially low results in patients with liver disease. Blood Venous blood specimen / Unknown 07/22/2025 11:25 AM EDT 07/22/2025 1:28 PM EDT us Sharona Kaur MD LAB BLOOD ORDERABLES Final Res ult [facility] [address] [place] [phone] * (ABNORMAL) Comprehensive Metabolic Panel (07/22/2025 11:25 AM EDT) Sodium 139 135 - 145 mmol/L [facility] Potassium 4.2 3.3 - 5.1 mmol/L [facility] Chloride 109(H) 96 - 108 mmol/L [facility] Carbon Dioxide 26 22 - 29 mmol/L [facility] Anion Gap 8(L) 12 - 20 [facility] Urea Nitrogen (BUN) 13 9 - 16 mg/dL [facility] Creatinine, Serum 1.18 0.5 - 1.4 mg/dL [facility] Estimated Glomerular Filt Rate >60 [facility] Comment:Chronic Kidney Disea se: Estimated GFR < 60 mL/min/1.05h7Kvzpdd Kidney Disease: Estimated GFR < 15 mL/min/1.73m2 Glucose 78 60 - 115 mg/dL [facility] Calcium 9.2 8.4 - 10.2 mg/dL [facility] Bilirubin, Total 0.4 0.0 - 1.0 mg/dL [facility] Aspartate Amino Transferase 35 5 - 37 U/L [facility] Alanine Aminotransferase 27 0 - 40 U/L [facility] Total Protein 7.8 6.5 - 8.0 g/dL [facility] Albumin Level 4.5 3.5 - 5.0 g/dL [facility] Alkaline Phosphatase 70 39 - 117 U/L [facility] Blood Venous blood specimen / Unknown 07/22/2025 11:25 AM EDT 07/22/2025 1:28 PM EDT Sharona Kaur MD LAB BLOOD ORDERABLES Final Res ult [facility] [address] [place] [phone] from Last 3 Months Insurance [facility] MEDICAID STAND ADULT Care Teams Rod Mill Tender Relationship Specialty Start Date End Date Sharona Kaur MD [address] [place] [address] PCP - General Family Medicine 07/22/25
--- OUTSIDE RECORDS SUMMARY | 2025-08-01 10:40 | XMS_ITS | Clinical Summary ---
Author Organization [facility] Address [address] [place] [phone] Phone Care Team Providers Care Die Forger Name Role Phone Physician, No Pcp Primary Care Provider Unavaila ble Allergies Active Allergy Reactions Criticality Noted Date Comments Amoxicillin Nausea And Vomiting 07/01/2014 Unsure if still sensitive to this med Codeine Nausea And Vomiting 07/01/2014 Unsure if still sensitive to this med Medications methocarbamoL (ROBAXIN) 500 mg tablet Take 1 tablet (500 mg total) by mouth 2 (two) times a day for 10 days. 20 tablet 07/06/2023 Active Family History Medical History Relation Name Comments Cancer Maternal Grandmother Diabetes Mother Hypertension Mother Kidney disease Mother Mental illness Mother Relation Name Status Comments Brother Alive Daughter Alive Maternal Grandfather Maternal Grandmother Mother Alive Social History Tobacco Use Types Packs/Day Years Used Date Smoking Tobacco: Every Day Cigarettes Smokeless Tobacco: Never Alcohol Use Standard Drinks/Week Comments No 0 (1 standard drink = 0.6 oz pur e alcohol) Sex and Gender Information Value Date Recorded Sex Assigned at Not on file Legal Sex Male 9:55 AM EST Gender Identity Not on file Sexual Orientation Not on file Obstetrics History Last Filed Vital Signs Vital Sign Reading Time Taken Comments Blood Pressure 104/70 07/05/2023 11:58 PM EDT Pulse 62 07/05/2023 11:58 PM EDT Temperature 36.4 C (97.5 F) 07/05/2023 11:58 PM EDT Respiratory Rate 14 07/05/2023 11:58 PM EDT Oxygen Saturation 99% 07/05/2023 11:59 PM EDT Inhaled Oxygen Concentration - - Weight - - Height - - Body Mass Index - - Plan of Treatment Health Maintenance Due Date Last Done Comments Colorectal Cancer Screening: Colonoscopy 1974 Hepatitis B Vaccines (1 of 3 - 19+ 3-dose series) 1993 Pneumococcal Vaccine: 50+ Ye ars (2 of 2 - PCV) 03/02/2017 03/02/2016 Cholesterol Screening (Lipid Panel) 07/06/2023 HIV Screening 07/06/2023 Hepatitis C Screening 07/06/2023 Social Influencers of Health Screening 07/06/2023 Zoster Vaccines (1 of 2) 2024 DTaP,Tdap,and Td Vaccines (2 - Td or Tdap) 07/01/2024 07/01/2014 Depression Screening 10/02/2024 COVID-19 Vaccine (2 - 2024-2 6 season) 2025 02/24/2021 Influenza Vaccine (#1) 2025 07/02/2016 RSV Immunization Adult Patie nts (1 - 1-dose 75+ series) 2049 HIB [...] on patient's age to complete this topic MMR Vaccines Aged Out No longer eligi ble based on patient's age to complete this topic Meningococcal ACWY Vaccine Aged Out N o longer eligible based on patient's age to complete this topic Meningococcal B Vaccine Aged Out No l onger eligible based on patient's age to complete this topic RSV Immunization Patients Un alpa 20 months Aged Out No longer eligible b ased on patient's age to complete this topic Varicella Vaccines Aged Out No longer eligible based on patient's age to complete this topic Insurance [address] [place] [address] [place] [employer] Care Teams Die Forger Relationship Specialty Start Date End Date Physician, No Pcp PCP - General 07/05/23
== END 2025-08-01 09:34 | disposition home or self-care (01) ==
LOC: HO.HHCX 09:33
PROVIDERS: PCP Nurse Practitioner Family; Visit Provider Nurse Practitioner Family
DX: M25.551 Pain in right hip (principal)
CPT/HCPCS: 73502

== ENCOUNTER → 2025-08-01 09:38 | Outpatient (BNV) | payer MEDICAID, SELFPAY | PROVIDERS: PCP Nurse Practitioner Family; Visit Provider Radiology Diagnostic Radiology | DX: M16.11 Unilateral primary osteoarthritis, right hip (principal) | CPT/HCPCS: 73502 ==

== ENCOUNTER 2025-08-18 13:29 | Outpatient (REF) | payer MEDICAID, SELFPAY ==
--- NOTE | ~2025-08-18 | US_ITS ---
EXAMINATION: US PELVIS LIMITED HISTORY: Inguinal hernia, rt ant hip pain COMPARISON: There are no prior studies available for comparison. TECHNIQUE: Ultrasound the right inguinal region. FINDINGS: No hernia is identified by ultrasound in the right inguinal region. Small lymph node anterior to the iliac vessels measuring 0.7 x 0.3 x 0.6 cm this. (Short axis 0.3 cm). US/US pelvic limited IMPRESSION: No hernia in the right inguinal region is evident by ultrasound. Electronically signed by: Kuldeep Gauthier MD 08/19/2025 10:41 AM [facility]
== END 2025-08-18 13:30 | disposition home or self-care (01) ==
LOC: HO.US 13:29
PROVIDERS: PCP Nurse Practitioner Family; Visit Provider Nurse Practitioner Family
DX: M25.551 Pain in right hip (principal); K40.90 Unilateral inguinal hernia, without obstruction or gangrene, not specified as recurrent
CPT/HCPCS: 76857

== ENCOUNTER → 2025-08-18 15:36 | Outpatient (BNV) | payer MEDICAID, SELFPAY | PROVIDERS: PCP Nurse Practitioner Family; Visit Provider Radiology Diagnostic Ultrasound | DX: K40.91 Unilateral inguinal hernia, without obstruction or gangrene, recurrent (principal); M25.551 Pain in right hip | CPT/HCPCS: 76857 ==